=== PATIENT | female | born 1970 | race Caucasian/White ===

== ENCOUNTER 2019-04-02 07:03 | Inpatient (IN) | payer BC, OTHER ==
[~2019-04-02] VITALS: Ht 154.9 cm; Wt 58.5 kg
[~2019-04-02 07:03] MED LIST: CALC0.258 PO; CEFAZOLIN SOD 1 GM in D5W 50 ML IV ONE; CHOL500037 PO; HYDR-4039 PO; NEPH PO; NOR10 PO; SIMV20TA2 PO; VALS320T2 PO
[2019-04-02 07:59] LABS: CALCIUM 8.7 mg/dL (8.4-11.0); POTASSIUM 4.8 mmol/L (3.5-5.1)
[2019-04-02 08:02] LABS: CREATININE 15.57 mg/dL (0.55-1.30)
[2019-04-02] MEDS ORDERED: METO50TA7 PO (09:06)
[2019-04-02] MEDS ORDERED: GLYCOPYRROLATE 0.2 MG/ML VIAL IJ ONE (09:20)
[2019-04-02] MEDS ORDERED: NS IRRIG SOLN 1000 ML IR ONE (09:20)
[2019-04-02] MEDS ORDERED: ISOSULFAN BLUE 5 ML VIAL (LYMPHAZURIN) INJ ONE (09:20)
[2019-04-02] MEDS ORDERED: NEOSTIGMINE METHYLSULFATE 1 MG/ML, 10 ML VIAL IVP ONE (09:20)
[2019-04-02] MEDS ORDERED: PROPOFOL 200MG/ 20ML VIAL (DIPRIVAN) IV ONE (09:20)
[2019-04-02] MEDS ORDERED: SEVOFLURANE 15 MIN GAS INH ONE (09:20)
[2019-04-02] MEDS ORDERED: fentaNYL CITRATE 250 MCG/5 ML AMP IV ONE (09:20)
[2019-04-02] MEDS ORDERED: ONDANSETRON HCL 4 MG/2 ML VIAL IVP ONE (09:20)
[2019-04-02] MEDS ORDERED: MIDAZOLAM HCL 5 MG/5 ML VIAL IVP ONE (09:20)
[2019-04-02] MEDS ORDERED: 0.45% NACL 1,000 ML BAG IV ONE (09:20)
[2019-04-02] MEDS ORDERED: ATRACURIUM BESYLATE 100 MG/10 ML VIAL (ATRACURIUM) IV ONE (09:20)
[2019-04-02] MEDS ORDERED: ATRACURIUM BESYLATE 100 MG/10 ML VIAL (ATRACURIUM) ONE (09:34)
[2019-04-02] MEDS ORDERED: 0.45% NACL 1,000 ML IV SCH (10:35)
[2019-04-02] MEDS ORDERED: MORPHINE 4 MG/ML INJ. SYRINGE IVP PRN ×3 (10:45)
[2019-04-02] MEDS ORDERED: hydrALAZINE HCL 20 MG/ML VIAL IVP PRN (10:45)
[2019-04-02] MEDS ORDERED: METOCLOPRAMIDE HCL 10 MG/2 ML VIAL IVP PRN (10:45)
[2019-04-02] MEDS ORDERED: D5/0.45 NS 1,000 ML IV SCH (12:16)
[2019-04-02] MEDS ORDERED: ONDANSETRON HCL 4 MG/2 ML VIAL IVP PRN (12:30)
[2019-04-02] MEDS ORDERED: HYDROmorphone 1 MG INJ. 1 MG/ML AMPUL IVP PRN (12:30)
[2019-04-02] MEDS ORDERED: HYDROcodone/ACETAMIN 5-325 MG TAB (NORCO/ VICODIN) PO PRN (12:30)
[2019-04-02] MEDS ORDERED: ACETAMINOPHEN 325 MG TABLET PO PRN (12:30)
[2019-04-02] MEDS ORDERED: MORPHINE 4 MG/ML INJ. SYRINGE ONE (13:21)
[2019-04-02 13:44] VITALS: BP_SYST 140
--- NOTE | 2019-04-02 13:50 | NUR ---
ADMISSION NOTE Received patient from PACU via bed. Patient admitted with diagnosis of bilateral mastectomy. Patient is sedated, however, is arousable . Patient oriented to hospital room, call light, toileting, pain management and safety-teach back done. Patient informed that Alessia will be her nurse and that their room number is 117-b. Personal belongings checked and Belongings List documented. Call light within reach.
[2019-04-02 14:12] LABS: CALCIUM 8.1 mg/dL (8.4-11.0)
[2019-04-02 14:14] LABS: POTASSIUM 5.9 mmol/L (3.5-5.1)
[2019-04-02 14:15] LABS: CREATININE 15.45 mg/dL (0.55-1.30)
--- NOTE | 2019-04-02 14:16 | NUR ---
CONSULTATION PAGED REASON FOR CONSULTATION:POST-OP CARE WAS CONSULT CALLED?Y PERSON WHO WAS NOTIFIED:SRINIVASA CONSULTING PHYSICIAN:HOWARD LOUIS HVAC TECHNICIAN SPECIALTY:INTERNAL MEDICINE HVAC TECHNICIAN PHONE NUMBER:[phone] ORDERING PHYSICIAN:JOSE ALEJANDRO MUNROE
--- NOTE | 2019-04-02 14:20 | NUR ---
Critical Labs Called Dr. Jackson to report a K level of 5.9, and creatinine of 15.45.
--- NOTE | 2019-04-02 14:30 | NUR ---
Spoke with MD Spoke with Dr. Jackson. Made MD aware of the critical labs. Also, made MD aware that patient receives peritoneal dialysis. MD ordered a consult with Dr. Palafox.
--- NOTE | 2019-04-02 15:06 | NUR ---
Nephro consult called: for Dr. Palafox, regarding peritoneal dialysis (stat), ordered by Dr. Jackson, spoke with Ministerio.
[2019-04-02] MEDS: CEFAZOLIN 1 GM IVPB PREMIX 50 ML IV SCH ×2 (15:12→22:15)
[2019-04-02] MEDS ORDERED: SODIUM POLYSTYRENE SULFONATE 15 GM/60 ML UDBTL PO ONE (15:30)
--- NOTE | 2019-04-02 15:45 | NUR ---
Med/Spoke with Kayexalate 30mg given per MD order. Spoke with Dr. Palafox. Made MD aware that the patient receives peritoneal dialysis.
[2019-04-02] MEDS: HYDROcodone/ACETAMIN 5-325 MG TAB (NORCO/ VICODIN) PO PRN ×2 (15:47→19:57)
--- NOTE | 2019-04-02 16:25 | NUR ---
Rounds/IS teaching Patient is currently resting in bed. Call light is within reach. Encouraged the patient ti use the IS, doing up 1000 at the moment.
[2019-04-02 16:30] VITALS: BP_SYST 135
[2019-04-02] MEDS ORDERED: Auryxia PO (18:08)
--- NOTE | 2019-04-02 18:24 | NUR ---
Closing Note Patient is currently resting in bed. Family is at the bedside. Current pain level is 3/10. Chest dressing and lj wrap are dry and intact. All four SHORTY drains were drained. IV is on the left hand 18g. SCDS are in place. Call light is within reach and bed is in the lowest position. Will endorse care to the oncoming shift.
[2019-04-02 19:40] VITALS: BP_SYST 134
--- NOTE | 2019-04-02 19:40 | NUR ---
INITIAL NOTES: BEDSIDE REPORT DONE WITH AM RN AT 1915HR. PATIENT IN BED AWAKE AWAKE ORIENTED X4. AT BEDSIDE. PT. HAVING POST OP PAIN.CANDLE MOLDER AT BEDSIDE INFORMING PATIENT AND FAMILY THAT HE WILL RETURN TO START PERITONEAL DIALYSIS.VITAL SIGNS TAKEN. SALINE LOCK TO LEFT HAND PATENT.BOTH MASTECTOMY BREAST WITH ANDREINA WRAPPED DRY AND INTACT. FOUR J PS. ON BULB SUCTION WITH SEROSANGUINOS DRAINAGE. HAS SCD. BED ALARM ON. WILL MONITOR CLOSELY.
--- NOTE | 2019-04-02 19:55 | NUR ---
PAIN: PATIENT COMPLAIN OF POST OPPAIN LEVEL 05/26. NORCO 2 TABS. PO.
--- NOTE | 2019-04-02 20:35 | NUR ---
HD RN NOT HERE YET. CHIEF DISPATCHER SERVICE ALEE AWARE. CHIEF DISPATCHER SERVICE INFORMED HD RN WILL START AT 2100.
--- NOTE | 2019-04-02 20:50 | NUR ---
HD RN HERE .SET UP PERITONEAL DIALYSIS AND INITIATED AT 2100 TILL 0730. PT. AND MADE AWARE WITH INSTRUCTIONS. WILL MONITOR CLOSELY.
--- NOTE | 2019-04-02 22:05 | NUR ---
MEDS ADMIN: ALL DUE MEDS GIVEN WITHOUT DIFFICULTY. RESTING QUITELY. PD. IN PROGRESS.
[2019-04-02] MEDS: hydrALAZINE HCL 25 MG TABLET PO SCH (22:15)
--- NOTE | 2019-04-03 | NUR ---
ROUNDS: RESTING WITH EYES CLOSE. OPENS EYES SLOWLY WHEN CALLED HER NAME. NOD HEAD WHEN ASKED IF COMFORTABLE. SALINE LOCKED AFTER IVPB.
[2019-04-03 01:22] VITALS: BP_SYST 112
--- NOTE | 2019-04-03 02:05 | NUR ---
ROUNDS: SLEEPING. 4 JPS WITH SUCTION.PD IN PROGRESS.NO DISTRESS.
--- NOTE | 2019-04-03 04:20 | NUR ---
OFFERED PAIN MEDS ,SAID IM OKAY. DRESSING DRY AND INTACT.
--- NOTE | 2019-04-03 06:50 | NUR ---
CLOSING: HAS POST OP PAIN. NORCO 2 TABS PO GIVEN. USED IS THIS AM. DENIES FEEL OF URINATING. NO ACUTE DISTRESS WHOLE SHIFT. PD BAG COMPLETED. DRAINING WELL. TOLERATING ORAL FLUIDS.
[2019-04-03] MEDS: HYDROcodone/ACETAMIN 5-325 MG TAB (NORCO/ VICODIN) PO PRN (06:52)
--- NOTE | 2019-04-03 06:52 | NUR ---
Nutrition Update Kailash Scale 15 noted. Pt admitted for Malignant Neoplasm of Unspecified site Diet: 2gm Na BMI: 24.4 kg/m2 RD to follow per nutrition care standards.
[2019-04-03] MEDS: hydrALAZINE HCL 25 MG TABLET PO SCH (06:53)
[2019-04-03 07:11] LABS: BASOPHILS % (AUTO) 0.2 % (0.0-2.0); EOSINOPHILS # (AUTO) 0.2 K/uL (0.0-0.4); EOSINOPHILS % (AUTO) 2.7 % (0.0-4.0); HEMATOCRIT 30.6 % (36-48); HEMOGLOBIN 9.7 g/dL (12.0-16.0); LYMPHOCYTES # (AUTO) 0.6 K/uL (1.0-5.5); LYMPHOCYTES % (AUTO) 8.8 % (20.5-51.5); MEAN CORPUSCULAR HEMOGLOBIN 32 pg (27-31); MEAN CORPUSCULAR HGB CONC 32 % (32-36); MEAN CORPUSCULAR VOLUME 99 fL (79.0-98.0); MONOCYTES # (AUTO) 0.7 K/uL (0.0-1.0); NEUTROPHILS # (AUTO) 5.7 K/uL (1.8-7.7); NEUTROPHILS % (AUTO) 78.3 % (40.0-70.0); PLATELET COUNT (AUTO) 213 K/uL (130-430); RED BLOOD CELL COUNT(AUTO) 3.08 MIL/uL (4.2-6.2); RED CELL DISTRIBUTION WIDTH 16.9 % (9.0-15.0); WHITE BLOOD COUNT (AUTO) 7.3 K/uL (4.8-10.8)
[2019-04-03 07:36] LABS: ALBUMIN 2.4 g/dL (3.4-4.8); CALCIUM 8.4 mg/dL (8.4-11.0); POTASSIUM 4.6 mmol/L (3.5-5.1); TOTAL BILIRUBIN 0.3 mg/dL (0.0-1.0)
[2019-04-03 07:45] LABS: CREATININE 15.37 mg/dL (0.55-1.30)
--- NOTE | 2019-04-03 07:48 | NUR ---
opening Note Report received from [facility] shift nurse. Patient is currently resting in bed. Chest dressing is dry and intact. Patient just finished her peritoneal dialysis with 1191 ml out. IV is on the left hand 18g, SL. Four SHORTY drains are in place draining sanguinous drainage. Call light is within reach and bed is in the lowest position. Will continue to monitor.
[2019-04-03 08:03] VITALS: BP_SYST 156
[2019-04-03] MEDS ORDERED: CALCITRIOL 0.25 MCG CAPSULE PO SCH (09:00)
[2019-04-03] MEDS ORDERED: amLODIPine BESYLATE 10 MG TABLET PO SCH (09:00)
[2019-04-03] MEDS ORDERED: METOPROLOL SUCCINATE 50 MG TAB.SR.24H (TOPROL XL) PO SCH (09:00)
[2019-04-03] MEDS ORDERED: VALSARTAN 160 MG TABLET (DIOVAN) PO SCH (09:00)
[2019-04-03] MEDS ORDERED: NEPHROVITE, (FOLIC ACID/VITAMIN B COMP W-C 1 TAB) PO SCH (09:00)
[2019-04-03] MEDS ORDERED: SIMVASTATIN 20 MG TABLET PO SCH (09:00)
[2019-04-03] MEDS ORDERED: NON-FORMULARY MEDICATION (Cholecalciferol* (Vitamin D3*) 50,000 UNIT) PO SCH (09:00)
--- NOTE | 2019-04-03 10:20 | NUR ---
Rounds Patient is currently resting in bed. Encouraged patient to use the IS, was able to do up to 1500.
[2019-04-03 11:45] VITALS: BP_SYST 156
[2019-04-03 12:58] VITALS: BP_SYST 129
--- NOTE | 2019-04-03 13:00 | NUR ---
Pain med Medicated the patient with Dilaudid 1mg for 7/10 pain. Will reassess.
--- NOTE | 2019-04-03 14:48 | NUR ---
Transition of Care Patient given medication reconciliation form and D/C instructions. Exit Care provided. Patient verbalized understanding. MD discussed with patient the results and treatment provided. Ambulatory with steady gait for discharge to home. Patient in stable condition, ID band removed. IV catheter removed, intact and dressing applied, no active bleeding. Patient educated on pain management. All belongings sent with patient.
== END 2019-04-03 14:45 | disposition home or self-care (01) | DRG 579 ==
LOC: SDS 07:03 → SMU 07:03 → EDSTATUS 09:30 → SMU 15:57 → SDS 16:28
PROVIDERS: ADMIT Colon & Rectal Surgery; ATTEND Colon & Rectal Surgery
PROC: 07B50ZX Excision of Right Axillary Lymphatic, Open Approach, Diagnostic (ICD-10-PCS; 2019-04-02)
PROC: 5A1D70Z Performance of Urinary Filtration, Intermittent, Less than 6 Hours Per Day (ICD-10-PCS; 2019-04-02)
PROC: 0HTV0ZZ Resection of Bilateral Breast, Open Approach (ICD-10-PCS; principal; 2019-04-02 09:00)
DX: C50.911 Malignant neoplasm of unspecified site of right female breast (principal); N18.6 End stage renal disease; I12.0 Hypertensive chronic kidney disease with stage 5 chronic kidney disease or end stage renal disease; Z88.9 Allergy status to unspecified drugs, medicaments and biological substances; E78.5 Hyperlipidemia, unspecified; Z99.2 Dependence on renal dialysis; H52.13 Myopia, bilateral; H52.203 Unspecified astigmatism, bilateral; H52.4 Presbyopia; M54.30 Sciatica, unspecified side
CPT/HCPCS: 36415; 78195; 80048; 80053; 84703; 85025; 86886; 86900; 86901; 86920; 87081; 88305; 88307; A9541; J0690; J1170; J2250; J2270; J2405; J2704; J2710; J3010; J3490; J7030; J7060; Q9968

== ENCOUNTER 2019-07-10 16:13 | Inpatient (IN) | payer BC, OTHER ==
[~2019-07-10] VITALS: Ht 154.9 cm; Wt 46.7 kg
[~2019-07-10 16:13] MED LIST changes: +Auryxia PO; -CEFAZOLIN SOD 1 GM in D5W 50 ML IV ONE; +METO50TA7 PO
--- NOTE | 2019-07-10 19:45 | NUR ---
DIRECT ADMISSION NOTE: Patient brought in by ambulance via gurney from [facility]. Patient oriented to hospital routine, call light, toileting and safety-patient verbalized understanding. Will call MD for admit orders.
[2019-07-10 19:55] VITALS: BP_SYST 138
--- NOTE | 2019-07-10 19:59 | NUR ---
Page to Dr. Palafox: was paged by JEANINE Cotton/ for admit orders. Awaiting callback. Addendum: 07/10/19 at 2018 by Ryan Raygoza RN is on-call for Dr. Jackson.
--- NOTE | 2019-07-10 20:31 | NUR ---
Dr. Palafox: Dr. Palafox, on-call for Dr. Jackson, called back at this time after 2nd page. MD ordered to continue medications from [place], CBC/CMP in the morning, and Tylenol for patient's complaint of headache. MD was made aware that patient receives peritoneal dialysis daily. MD stated that he will notify dialysis nurse SANDOVAL Avila. Orders verified by read-back, RN to input.
[2019-07-10] MEDS ORDERED: ACETAMINOPHEN 650 MG/20.3 ML UDC PO PRN (20:45)
--- NOTE | 2019-07-10 21:26 | NUR ---
Call from dialysis nurse: Received call from dialysis nurse SANDOVAL Avila and was notified that patient's peritoneal dialysis will be resumed tomorrow unless patient's PD machine can be brought from home. Patient's Nixon present in the room and spoke to SANDOVAL Avila over phone. Per Nixon, SANDOVAL Avila wanted him to bring patient's PD machine to the hospital. Nixon stated that the PD machine is property of [facility], and he is not sure if he is legally allowed to bring the machine to the hospital. Additionally, patient wanted her PD machine to stay at her home. and patient aware that PD will be resumed tomorrow.
[2019-07-10] MEDS ORDERED: PIPERACILLIN/TAZOBACTAM 3.375 GM/VIAL (ZOSYN) IV ONE (22:13)
[2019-07-10] MEDS: NACL 0.9% 1,000 ML IV SCH (22:52)
[2019-07-10] MEDS: MIDODRINE HCL 5 MG TABLET (PROAMATINE) PO SCH (22:52)
[2019-07-10] MEDS: NYSTATIN 500,000 UNITS/5 ML UDC PO SCH (22:57)
[2019-07-10] MEDS ORDERED: ACETAMINOPHEN 325 MG TABLET PO PRN (23:00)
[2019-07-10] MEDS: PIPERACILLIN/TAZO 3.375/DEX-IS 50 ML IV SCH (23:21)
--- NOTE | 2019-07-11 00:13 | NUR ---
Rounds: Patient is sleeping, no acute distress. Tolerating room air. IV fluids infusing as ordered. Call light is with patient. Will continue to monitor.
[2019-07-11 00:44] VITALS: BP_SYST 140
--- NOTE | 2019-07-11 03:28 | NUR ---
Rounds: Patient is sleeping, no acute distress. Tolerating room air, breathing is even and unlabored. IV fluids infusing as ordered. Call light is with patient. Will continue to monitor.
[2019-07-11] MEDS: NYSTATIN 500,000 UNITS/5 ML UDC PO SCH ×4 (05:53→23:41)
--- NOTE | 2019-07-11 06:13 | NUR ---
Closing note: Patient is awake, no acute distress noted. IV fluids infusing as ordered. Patient able to ambulate to bathroom with FWW and nurse on standby assist. Patient denies any pain, shortness of breath, or dizziness. All needs met. Safety and fall precautions observed. Will endorse care to dayshift RN.
[2019-07-11 06:32] LABS: BASOPHILS # (AUTO) 0.2 K/uL (0.0-0.2); EOSINOPHILS # (AUTO) 0.4 K/uL (0.0-0.4); EOSINOPHILS % (AUTO) 3.4 % (0.0-4.0); HEMATOCRIT 28.8 % (36-48); HEMOGLOBIN 9.9 g/dL (12.0-16.0); LYMPHOCYTES % (AUTO) 8.6 % (20.5-51.5); MEAN CORPUSCULAR HEMOGLOBIN 31 pg (27-31); MEAN CORPUSCULAR HGB CONC 34 % (32-36); MEAN CORPUSCULAR VOLUME 90 fL (79.0-98.0); MONOCYTES # (AUTO) 0.8 K/uL (0.0-1.0); MONOCYTES % (AUTO) 7.2 % (1.7-9.3); NEUTROPHILS # (AUTO) 9.2 K/uL (1.8-7.7); NEUTROPHILS % (AUTO) 78.8 % (40.0-70.0); PLATELET COUNT (AUTO) 347 K/uL (130-430); RED BLOOD CELL COUNT(AUTO) 3.18 MIL/uL (4.2-6.2); RED CELL DISTRIBUTION WIDTH 14.3 % (9.0-15.0); WHITE BLOOD COUNT (AUTO) 11.6 K/uL (4.8-10.8)
[2019-07-11 06:53] LABS: ALBUMIN 1.7 g/dL (3.4-4.8); CALCIUM 7.3 mg/dL (8.4-11.0); POTASSIUM 3.3 mmol/L (3.5-5.1); TOTAL BILIRUBIN 0.4 mg/dL (0.0-1.0)
[2019-07-11 06:57] LABS: CREATININE 8.28 mg/dL (0.55-1.30)
[2019-07-11 07:45] VITALS: BP_SYST 131
--- NOTE | 2019-07-11 08:00 | NUR ---
am noted received pt in bed. a/ox4. .eating breakfast. denies any pain or sob at this time. vitals stable. res even and unlabored. encourged deep breathing. .safety and fall precautions maintained. needs attended. call light within reach. not in acute distress. will continue to monitor
[2019-07-11] MEDS ORDERED: ESCITALOPRAM OXALATE 10 MG TABLET PO SCH (09:00)
[2019-07-11] MEDS: MULTIVITAMINS TAB 1 TABLET PO SCH (09:12)
[2019-07-11] MEDS: PIPERACILLIN/TAZO 3.375/DEX-IS 50 ML IV SCH ×2 (09:12→20:53)
[2019-07-11] MEDS: MIDODRINE HCL 5 MG TABLET (PROAMATINE) PO SCH ×4 (09:12→21:00)
[2019-07-11] MEDS: CITALOPRAM HYDROBROMIDE 20 MG TABLET PO SCH (09:12)
--- NOTE | 2019-07-11 11:00 | NUR ---
iv site rt hand iv site infiltrated.. new iv line inserted #22 by charge nurse kuldeep. ivf infusing well. no s/sof infiltration noted.denies any pain or orther discomfort. will continue to monitor
[2019-07-11 11:25] VITALS: BP_SYST 133
[2019-07-11] MEDS: NACL 0.9% 1,000 ML IV SCH ×2 (12:17→20:53)
[2019-07-11] MEDS: ONDANSETRON HCL 4 MG/2 ML VIAL IVP PRN (12:23)
--- NOTE | 2019-07-11 15:25 | NUR ---
Dietitian Recommendation * Recommend renal diet w/ Nepro BID, Prosource daily, Ernst BID (supplements provide 1090 kcal/day, 73 gm protein/day) OSCAR MEDINA Please refer to Nutrition Assessment for details. Addendum: 07/11/19 at [address] Amended: Links added.
[2019-07-11 15:45] VITALS: BP_SYST 141
--- NOTE | 2019-07-11 16:00 | NUR ---
rounds pt stable not in acute distress vitals stable. vitals stable.ivf infusing well
--- NOTE | 2019-07-11 18:42 | NUR ---
closing notes pt resting comfortably .not ken cute distress. dialysis nurse cortez at bed side. for peritonal dialysis. pt signed consent for peritonal dialysis.ivf infuisng well. will endorse to night nurse
--- NOTE | 2019-07-11 19:15 | NUR ---
OPENING NOTES RECEIVED PATIENT IN BED AAO X4. BREATHING UNLABORED ON ROOM AIR. DENIES PAIN AT THIS TIME. PERITONEAL DIALYSIS ONGOING. IVF INFUSING WITH IV LINE INTACT. BED IN LOWEST LOCKED POSITION WITH ALARM ON. CALL LIGHT WITH IN REACH.
[2019-07-11 20:46] VITALS: BP_SYST 135
--- NOTE | 2019-07-11 20:53 | NUR ---
ATB PATIENT DUE ANTIBIOTIC INFUSED. IV LINE GOOD AND PATENT. VITAL SIGNS STABLE.
--- NOTE | 2019-07-12 00:30 | NUR ---
ROUNDS PATIENT RESTING IN BED. NO DISTRESS NOTED. VITAL SIGNS STABLE. CALL LIGHT WITH IN REACH.
[2019-07-12 00:40] VITALS: BP_SYST 124
[2019-07-12] MEDS: guaiFENesin/DEXTROMETHORPHAN 10 ML UDC PO PRN ×4 (02:13→21:21)
[2019-07-12] MEDS: ONDANSETRON HCL 4 MG/2 ML VIAL IVP PRN (02:13)
--- NOTE | 2019-07-12 02:13 | NUR ---
VOMITING/COUGH PATIENT MEDICATED WITH ZOFRAN FOR EPISODE OF VOMITING AND ROBITUSSIN FOR COUGH.
[2019-07-12] MEDS: NYSTATIN 500,000 UNITS/5 ML UDC PO SCH ×4 (06:16→23:55)
--- NOTE | 2019-07-12 06:20 | NUR ---
WOUND CARE WOUND CARE DONE ON LEFT BUTTOCK. NEW DRESSING APPLIED.
[2019-07-12] MEDS: NACL 0.9% 1,000 ML IV SCH (06:25)
--- NOTE | 2019-07-12 06:57 | NUR ---
CLOSING NOTES PATIENT AWAKE WATCHING TV. BREATHING UNLABORED ON ROOM AIR. IVF INFUSING WITH IV LINE INTACT. PATIENT NEEDS ATTENDED. BED IN LOWEST LOCKED POSITION. CALL LIGHT WITH IN REACH.
[2019-07-12] MEDS: PIPERACILLIN/TAZO 3.375/DEX-IS 50 ML IV SCH (08:15)
[2019-07-12] MEDS: MIDODRINE HCL 5 MG TABLET (PROAMATINE) PO SCH ×4 (08:15→21:00)
[2019-07-12] MEDS: CITALOPRAM HYDROBROMIDE 20 MG TABLET PO SCH (08:15)
[2019-07-12] MEDS: NEPHROVITE, (FOLIC ACID/VITAMIN B COMP W-C 1 TAB) PO SCH (08:15)
[2019-07-12] MEDS: MULTIVITAMINS TAB 1 TABLET PO SCH (08:15)
[2019-07-12] MEDS: CALCITRIOL 0.25 MCG CAPSULE PO SCH (08:17)
[2019-07-12 08:21] VITALS: BP_SYST 139
--- NOTE | 2019-07-12 09:30 | NUR ---
Cardiac consult called: for Dr. Fink, regarding hypotension, ordered by Dr. Jackson, spoke with Bridgett.
--- NOTE | 2019-07-12 09:36 | NUR ---
DR CHAN ORDERED MICRO CULTURE REPORT FROM [facility]. SPOKE TO UMM.
--- NOTE | 2019-07-12 11:15 | NUR ---
PATIENT RESTING: Patient resting quietly. No acute distress noted. Vital signs within normal range.
--- NOTE | 2019-07-12 11:41 | NUR ---
SKIN CARE COMFORT Patient had shower tolerates well no dizziness, left lower abdominal peritoneal dialysis catheter dressing changed.
[2019-07-12 13:01] VITALS: BP_SYST 136
[2019-07-12 14:00] VITALS: BP_SYST 133
--- NOTE | 2019-07-12 14:00 | NUR ---
Wound care Left buttocks wound is dried kept dry/clean skin cream barrier applied kept open to air.
[2019-07-12 14:46] VITALS: BP_SYST 133
--- NOTE | 2019-07-12 14:49 | NUR ---
Dr. Fink informed regarding blood pressure on 130 up , midodrine not given.
--- NOTE | 2019-07-12 16:35 | NUR ---
P.T. NOTES P.T. TOM COMPLETED; NURSING TO GRISELU AD MARGARITA. Addendum: 07/12/19 at 1636 by Lula Telles PT Amended: Links added.
--- NOTE | 2019-07-12 18:00 | NUR ---
Renal Patient started peritoneal dialysis by dialysis nurse PAUL , able to ambulate to bathroom with steady gait , vitals sign stable, needs attended.
--- NOTE | 2019-07-12 19:15 | NUR ---
CHANGE OF SHIFT; pt. awake, alert, no complaints, noted nonproductive cough. On continuous peritoneal dialysis. call light at bedside. will reassess later.
[2019-07-12 20:00] VITALS: BP_SYST 146
--- NOTE | 2019-07-12 20:15 | NUR ---
NOTES: pt. resting, IV lock on left forearm. VS checked. moves all extremities. pt. anuric. PD site on left lower quadrant. instructed to call for help and verbalized understanding.
--- NOTE | 2019-07-12 21:21 | NUR ---
NOTES: pt. still awake, with occ. bouts of non productive cough, Robitussin po given. pt. still on continuous PD.
--- NOTE | 2019-07-12 22:47 | NUR ---
NOTES: pt. pretty calm, resting.
--- NOTE | 2019-07-13 00:01 | NUR ---
NOTES: pt. awakened for due medication, noted cough was relieved from cough syrup.
[2019-07-13 00:11] VITALS: BP_SYST 140
--- NOTE | 2019-07-13 02:00 | NUR ---
NOTES: condition unchanged, remain sleeping.
--- NOTE | 2019-07-13 04:17 | NUR ---
NOTES: no complaints, checked pt. still asleep.
[2019-07-13] MEDS: NYSTATIN 500,000 UNITS/5 ML UDC PO SCH ×3 (05:40→17:29)
[2019-07-13] MEDS: guaiFENesin/DEXTROMETHORPHAN 10 ML UDC PO PRN (05:42)
--- NOTE | 2019-07-13 05:43 | NUR ---
NOTES; awakened and due po meds given including cough syrup. pt. needs attended.
--- NOTE | 2019-07-13 06:45 | NUR ---
CLOSING NOTES; pt. condition unchanged, no complaints except for the cough. needs attended. PD catheter intact. call light within reach.
[2019-07-13 07:52] VITALS: BP_SYST 136
--- NOTE | 2019-07-13 07:53 | NUR ---
Initial note: Patient is alert, oriented x4, denies any pain, but having dry cough, walking around the bed independence. She is on Peritoneal dialysis cycle, waiting for HD nurse to disconnect. Will continue monitor.
[2019-07-13] MEDS: CALCITRIOL 0.25 MCG CAPSULE PO SCH (08:52)
[2019-07-13] MEDS: CITALOPRAM HYDROBROMIDE 20 MG TABLET PO SCH (08:53)
[2019-07-13] MEDS: MULTIVITAMINS TAB 1 TABLET PO SCH (08:53)
[2019-07-13] MEDS: NEPHROVITE, (FOLIC ACID/VITAMIN B COMP W-C 1 TAB) PO SCH (08:53)
[2019-07-13] MEDS: MIDODRINE HCL 5 MG TABLET (PROAMATINE) PO SCH ×2 (08:53→16:12)
--- NOTE | 2019-07-13 09:45 | NUR ---
PD disconnected: Avila < HD nurse> came in and disconnect Peritoneal Dialysis cycle with 1060 out put.
[2019-07-13 12:00] VITALS: BP_SYST 131
--- NOTE | 2019-07-13 13:36 | NUR ---
shower: Assist patient to shower room. Encourage her to pull the call light if needed help.
--- NOTE | 2019-07-13 14:08 | NUR ---
ATTENDING MD DR BARAHONA WAS CALLED, RE: DISCHARGE ORDER TO HOME. SPOKE TO KENIA.
--- NOTE | 2019-07-13 14:15 | NUR ---
DC ordered: Got a call from HCP spring encaser states that patient will be DC home today. Call Dr. Jackson and get an order to DC home , continue all home medication and follow up with Dialysis center . Patient made aware, and states her will be in after finishing his job around 5 PM.
[2019-07-13 15:57] VITALS: BP_SYST 136
[2019-07-13 16:14] VITALS: BP_SYST 136
--- NOTE | 2019-07-13 17:53 | NUR ---
prescription: Patient's is here ready to metal pickling equipment operator the patient, but patient wants to get prescription for Nystatin for sore in her mouth. We text message and call Dr. Jackson for that but he has not return to call. Call MD administrative assistant front desk after hour.
--- NOTE | 2019-07-13 18:21 | NUR ---
Prescription: Dr. Jackson calls back and states to have patient's Pharmacy call him. Call the [facility] pharmacy that patient goes, but they don't carry Nystatin oral suspension. Inform the patient tomorrow go check any pharmacy that carry the medication and have them call Dr. Jackson.
--- NOTE | 2019-07-13 18:27 | NUR ---
D/C Patient Patient given medication reconciliation form and D/C instructions. Patient verbalized understanding. MD discussed with patient the results and treatment provided. Ambulatory with steady gait for discharge to home. Patient in stable condition, ID band removed. IV catheter removed, intact and dressing applied, no active bleeding. Patient educated on pain management. All belongings sent with patient.
== END 2019-07-13 18:22 | disposition home or self-care (01) | DRG 871 ==
LOC: SMU 20:00 → STU 21:15 → SMU 07-12 11:24
PROVIDERS: ADMIT Internal Medicine Hospice and Palliative Medicine; ATTEND Internal Medicine Hospice and Palliative Medicine
DX: A41.9 Sepsis, unspecified organism (principal); N18.6 End stage renal disease; I12.0 Hypertensive chronic kidney disease with stage 5 chronic kidney disease or end stage renal disease; Z99.2 Dependence on renal dialysis; E78.5 Hyperlipidemia, unspecified; K12.1 Other forms of stomatitis; Z85.3 Personal history of malignant neoplasm of breast; Z90.13 Acquired absence of bilateral breasts and nipples; Z92.21 Personal history of antineoplastic chemotherapy
CPT/HCPCS: 36415; 80053; 85025; 87040-TC; 87081; 93306; G0378; J2405; J2543; J7030; J7060

== ENCOUNTER 2022-04-22 14:37 | Emergency (ER) | payer BC ==
[~2022-04-22] VITALS: Ht 154.9 cm; Wt 38.1 kg
[~2022-04-22 14:37] MED LIST changes: +CAT2PAT TD; -CHOL500037 PO; +FOLI-43 PO; +FOLI400T4 PO; -METO50TA7 PO; +NIFE90TA24 PO; -NOR10 PO; +RALO60TA PO; +TAMO20TA4 PO; -VALS320T2 PO; +VITAMIN D PO
[2022-04-22 14:44] VITALS: BP_SYST 116
--- NOTE | 2022-04-22 15:00 | NUR ---
Patient to ER bed 4 to gown for evaluation. Side rails up.
--- NOTE | 2022-04-22 15:09 | NUR ---
# 20 gauge angiocath placed to left AC. Use of asceptic technique. Opsite placed over site. Blood return noted. Blood for lab drawn from site. Flushed with 10 cc of normal saline. No evidence of infiltration noted. Patient tolerated well.
--- NOTE | 2022-04-22 15:15 | NUR ---
ER at bedside examining patient.
[2022-04-22 15:45] LABS: BASOPHILS % (AUTO) 0.2 % (0.0-2.0); EOSINOPHILS % (AUTO) 0.1 % (0.0-4.0); LYMPHOCYTES # (AUTO) 0.7 K/uL (1.0-5.5); LYMPHOCYTES % (AUTO) 8.3 % (20.5-51.5); MEAN CORPUSCULAR HEMOGLOBIN 33 pg (27-31); MEAN CORPUSCULAR HGB CONC 33 % (32-36); MEAN CORPUSCULAR VOLUME 101 fL (79.0-98.0); MONOCYTES # (AUTO) 0.7 K/uL (0.0-1.0); MONOCYTES % (AUTO) 8.1 % (1.7-9.3); NEUTROPHILS # (AUTO) 7.4 K/uL (1.8-7.7); NEUTROPHILS % (AUTO) 83.3 % (40.0-70.0); PLATELET COUNT (AUTO) 503 K/uL (130-430); RED BLOOD CELL COUNT(AUTO) 2.12 MIL/uL (4.2-6.2); RED CELL DISTRIBUTION WIDTH 16.9 % (9.0-15.0); WHITE BLOOD COUNT (AUTO) 8.9 K/uL (4.8-10.8)
[2022-04-22 15:49] LABS: HEMATOCRIT 21.4 % (36-48)
--- NOTE | 2022-04-22 16:03 | NUR ---
Consent obtained for blood transfusion. Pt has no c/o. Paper work sent to lab.
--- NOTE | 2022-04-22 17:04 | NUR ---
Called pharmacy to see if blood is ready and they stated it is not ready yet.
[2022-04-22 17:37] LABS: CALCIUM 9.1 mg/dL (8.4-11.0); POTASSIUM 4.2 mmol/L (3.5-5.1)
[2022-04-22 17:40] LABS: CREATININE 14.45 mg/dL (0.55-1.30)
--- NOTE | 2022-04-22 18:50 | NUR ---
Initiated 1 unit of Blood Transfusion PRBC starting at 75ml/hr. VSS. pt has no c/o.
--- NOTE | 2022-04-22 19:02 | NUR ---
Blood transfusion rate changed to 150ml/hr. VSS. Pt has no c/o. at bedside.
--- NOTE | 2022-04-22 19:10 | NUR ---
Report given to Mila NICK to assume care.
--- NOTE | 2022-04-22 19:15 | NUR ---
REPORT FROM SANDOVAL LEMOS. X1 PRBC INFUSING TO LEFT A/C 20G IV CATH. NO EDEMA OR REDNESS AT SITE. CONTINUED MONITORING
--- NOTE | 2022-04-22 20:30 | NUR ---
IV PRBC INFUSION OCCLUDDED AND STOPPED. EDEMA NOTED AT SITE TO LEFT A/C. IV CATH REMOVED WITH CATH INTACT AND IV CATH RESTARTED TO LEFT HAND/ WRIST VIA 20G CATH. PRBS RESTARTED AT 150CC/ WITH NO EDEMA NOTED OR REDNESS.
--- NOTE | 2022-04-22 22:15 | NUR ---
JESSICA RN PT D/C TO HOME WITH . TO LOBBY VIA W/C WITH ALL PAPERWORK IN HAND. PT STABLE FOR D/C
[2022-04-22 22:29] VITALS: BP_SYST 137
== END 2022-04-22 22:29 | disposition home or self-care (01) ==
LOC: SED 14:37
DX: D64.9 Anemia, unspecified (principal); I11.0 Hypertensive heart disease with heart failure; I50.9 Heart failure, unspecified; Z99.2 Dependence on renal dialysis; Z88.6 Allergy status to analgesic agent; Z79.899 Other long term (current) drug therapy
CPT/HCPCS: 36415; 80048; 85025; 86886; 86900; 86901; 86920; 99283

== ENCOUNTER 2022-06-03 05:20 | Day surgery (SDC) | payer BC ==
[~2022-06-03] VITALS: Ht 154.9 cm; Wt 40.4 kg
[~2022-06-03 05:20] MED LIST changes: +SIMV-343 PO; -SIMV20TA2 PO
[2022-06-03] MEDS ORDERED: MEPERIDINE 100 MG INJ. 100 MG/ML VIAL ONE (06:08)
[2022-06-03] MEDS ORDERED: SIMETHICONE 40 MG/0.6 ML ML ONE (06:09)
[2022-06-03] MEDS ORDERED: fentaNYL CITRATE/PF 100 MCG/2 ML AMP ONE (06:54)
[2022-06-03] MEDS ORDERED: AMPICILLIN SODIUM 1 GM in NS 50 ML IV ONE (07:30)
[2022-06-03] MEDS: MIDAZOLAM HCL 5 MG/5 ML VIAL ONE ×2 (08:49→08:55)
[2022-06-03 13:09] VITALS: BP_SYST 137
== END 2022-06-03 10:07 | disposition home or self-care (01) ==
LOC: SDS 05:20 → SMU 05:20 → SDS 10:07
PROVIDERS: ATTEND Internal Medicine Gastroenterology
DX: K21.9 Gastro-esophageal reflux disease without esophagitis (principal); D64.9 Anemia, unspecified; K29.50 Unspecified chronic gastritis without bleeding; Z20.822 Contact with and (suspected) exposure to COVID-19; I12.9 Hypertensive chronic kidney disease with stage 1 through stage 4 chronic kidney disease, or unspecified chronic kidney disease; N18.9 Chronic kidney disease, unspecified; E78.00 Pure hypercholesterolemia, unspecified; Z85.3 Personal history of malignant neoplasm of breast; Z80.0 Family history of malignant neoplasm of digestive organs; Z79.899 Other long term (current) drug therapy
CPT/HCPCS: 36415 ×2; 43239; 87426; 88305; 88312; 88313; 99152; U0003; G0378; J0290; J2250; J3010; J2175

== ENCOUNTER 2022-10-16 00:24 | Inpatient (IN) | payer BC ==
[~2022-10-16] VITALS: Ht 154.9 cm; Wt 41.5 kg
[2022-10-16 00:35] VITALS: BP_SYST 177
--- NOTE | 2022-10-16 01:11 | NUR ---
ER at bedside examining patient.
--- NOTE | 2022-10-16 01:11 | NUR ---
Patient to ER bed redman to gown for evaluation. Side rails up. Report given to Angela NCIK(reg).
--- NOTE | 2022-10-16 01:20 | NUR ---
PATIENT BIB FAMILY FROM HOME WITH C/O AMS THAT STARTED THIS AFTERNOON. PATIENT IS ALERT AND ORIENTED X 2, FOLLOWS COMMAND, NO S/S OF ANY RESPIRAATORY DISTRESS NOTED AND NON TENDER TO PALPATION WITH DIALYSIS CATH INTACT TO LOWER ABD. MD AT BEDSIDE FOR EXAM, PATIENT AND FAMILY MEMBER INFORMED OF PLAN OF CARE AT THIS TIME. SIDE RAILS WILL CONTINUE TO MONITOR.
--- NOTE | 2022-10-16 01:49 | NUR ---
BEDSIDE EKG IN PROGRESS, #20G ESTABLISHED IN RIGHT AC, BLOOD COLLECTED AND SENT TO LAB. SIDE RAILS UP, WILL CONTINUE TO MONITOR.
--- NOTE | 2022-10-16 01:51 | NUR ---
SLIGHT BLE EDEMA NOTED AT THIS TIME.
[2022-10-16 02:19] LABS: BASOPHILS % (AUTO) 0.5 % (0.0-2.0); EOSINOPHILS % (AUTO) 0.2 % (0.0-4.0); HEMATOCRIT 31.9 % (36-48); HEMOGLOBIN 10.1 g/dL (12.0-16.0); LYMPHOCYTES # (AUTO) 0.8 K/uL (1.0-5.5); LYMPHOCYTES % (AUTO) 9.1 % (20.5-51.5); MEAN CORPUSCULAR HEMOGLOBIN 30 pg (27-31); MEAN CORPUSCULAR HGB CONC 32 % (32-36); MEAN CORPUSCULAR VOLUME 94 fL (79.0-98.0); MONOCYTES # (AUTO) 0.9 K/uL (0.0-1.0); MONOCYTES % (AUTO) 9.9 % (1.7-9.3); NEUTROPHILS # (AUTO) 7.1 K/uL (1.8-7.7); NEUTROPHILS % (AUTO) 80.3 % (40.0-70.0); PLATELET COUNT (AUTO) 270 K/uL (130-430); RED BLOOD CELL COUNT(AUTO) 3.38 MIL/uL (4.2-6.2); RED CELL DISTRIBUTION WIDTH 16.2 % (9.0-15.0); WHITE BLOOD COUNT (AUTO) 8.8 K/uL (4.8-10.8)
[2022-10-16 02:31] LABS: ANION GAP 14 (5-15); CALCIUM 9.4 mg/dL (8.4-11.0); CHLORIDE 95 mmol/L (98-107); GLUCOSE 92 mg/dL (70-99); UREA NITROGEN, BLOOD 92 mg/dL (8-21)
[2022-10-16 02:46] LABS: ALANINE AMINOTRANSFERASE 15 U/L (12-78); ALBUMIN 2.7 g/dL (3.4-4.8); ASPARTATE AMINOTRANSFERASE 17 U/L (10-37); PHOSPHORUS 8.6 mg/dL (2.7-4.5); THYROID STIMULATING HORMONE 3.13 uIu/mL (0.36-3.74); TOTAL BILIRUBIN 0.4 mg/dL (0.0-1.0)
[2022-10-16 02:48] LABS: CREATININE 14.62 mg/dL (0.55-1.30); GFR AFRICAN AMERICAN 3 mL/min (>90)
[2022-10-16] MEDS ORDERED: AZITHROMYCIN 500 MG in NS 250 ML IV ONE (03:00)
[2022-10-16] MEDS ORDERED: cefTRIAXone 1 GM in D5W 50 ML IV ONE (03:00)
[2022-10-16] MEDS ORDERED: cefTRIAXone 1 GM VIAL ONE (03:03)
[2022-10-16] MEDS ORDERED: AZITHROMYCIN 500 MG/VIAL (ZITHROMAX) IV ONE (03:04)
--- NOTE | 2022-10-16 03:19 | NUR ---
PATIENT AND FAMILY AWARE WILL BE ADMITTED TO THE HOSPITAL, AWAITING ROOM ASSIGNMENT.
--- NOTE | 2022-10-16 04:52 | NUR ---
CONSULTATION PAGED/CALLED Reason for Consultation: pna Person Who was Notified:exchange Consulting Physician: becky schneider Photogrammetric Technician Specialty: Ordering Physician: anthony gr
--- NOTE | 2022-10-16 04:53 | NUR ---
CONSULTATION PAGED/CALLED Reason for Consultation: renal failure Person Who was Notified:daphnie Consulting Physician: lili Cargo Service Supervisor Specialty: Ordering Physician: anthony gr
[2022-10-16] MEDS ORDERED: HYDROcodone/ACETAMIN 10-325 MG TAB PO PRN (05:00)
[2022-10-16] MEDS ORDERED: NON-FORMULARY MEDICATION ([Vitamin D] 50,000 UNITS) PO SCH (05:00)
[2022-10-16] MEDS ORDERED: HYDROcodone/ACETAMIN 5-325 MG TAB (NORCO/ VICODIN) PO PRN (05:00)
[2022-10-16] MEDS ORDERED: NALOXONE HCL 0.4 MG/ML AMP (NARCAN) IVP PRN ×2 (05:00)
[2022-10-16] MEDS ORDERED: ONDANSETRON HCL 4 MG/2 ML VIAL IVP PRN (05:00)
[2022-10-16] MEDS ORDERED: ACETAMINOPHEN 325 MG TABLET PO PRN (05:00)
--- NOTE | 2022-10-16 06:08 | NUR ---
RESTING, FAMILY AT BEDSIDE, NO CHANGE IN PRIMARY ASSESSMENT.
[2022-10-16] MEDS: NORMAL SALINE 5 ML DISP.SYRIN IVF SCH ×6 (06:09→22:40)
--- NOTE | 2022-10-16 07:28 | NUR ---
REPORT GIVEN TO THOMAS ORTIZ, PATIENT REMAINS STABLE.
--- NOTE | 2022-10-16 07:30 | NUR ---
Dare of care received at this time, pt Alert to name, VSS, respirations even and unlabored
--- NOTE | 2022-10-16 08:43 | NUR ---
Gave Reg. Tray breakfast to pt. is at bedside helping to feed her.
[2022-10-16] MEDS ORDERED: FOLIC ACID PO SCH (09:00)
[2022-10-16] MEDS ORDERED: VITAMIN B COMP W C PO SCH (09:00)
[2022-10-16] MEDS ORDERED: RALOXIFENE HCL 60 MG TABLET (EVISTA) PO SCH (09:00)
[2022-10-16] MEDS ORDERED: cloNIDine HCL 0.2 MG/24 HR PATCH.TDWK TD SCH (09:00)
[2022-10-16] MEDS ORDERED: [UNRECOGNIZED DRUG - OTHER] PO SCH (09:00)
[2022-10-16] MEDS ORDERED: TAMOXIFEN CITRATE 10 MG TABLET PO SCH ×2 (09:00→09:33)
--- NOTE | 2022-10-16 10:45 | NUR ---
Spoke with Dr Krishnan Diabetic Educator via phone, per Dr Krishnan she will contact dialysis nurse to start peritoneal dialysis as soon as possible , pt's notified
[2022-10-16] MEDS: hydrALAZINE HCL 25 MG TABLET PO SCH ×2 (11:01→22:39)
[2022-10-16] MEDS: NEPHROVITE, (FOLIC ACID/VITAMIN B COMP W-C 1 TAB) PO SCH (11:02)
[2022-10-16] MEDS: FOLIC ACID 1 MG TABLET PO SCH (11:02)
[2022-10-16] MEDS: calcitrioL 0.25 MCG CAPSULE PO SCH (11:11)
--- NOTE | 2022-10-16 11:30 | NUR ---
Per Dialysis nurse Margarita , need to call her once patient is transfer to a room in order to complete peritoneal dialysis, phone number( [phone].
--- NOTE | 2022-10-16 11:37 | NUR ---
Admit bed requested Patient will be admitted to care of Dr CAMEJO.. Admitted to TELE unit. Diagnosis PNA,RENAL FAILURE Inpatient (Yes or No) YES Observation (Yes or No) NO Orientation concerns or request close to nursing station (Yes or No) YES Covid Status NEGATIVE On vent or bipap N/A Isolation requirements N/A Needs a sitter N/A From Home (Yes or if No enter name of facility) YES Requires Dialysis (Yes or No) YES Med Rec Completed (Yes of No)YES
[2022-10-16] MEDS ORDERED: AZITHROMYCIN 500 MG in NS 250 ML IV SCH (12:00)
--- NOTE | 2022-10-16 12:00 | NUR ---
Dialysis nurse at bedside
--- NOTE | 2022-10-16 12:30 | NUR ---
Patient will be admitted to care of Dr Colon. Admitted to Tele unit. Will go to room 121C. Belongings list completed. Complete and up to date summary report printed. SBAR report to be given at bedside with opportunity for questions.
--- NOTE | 2022-10-16 12:35 | NUR ---
New admit from ER Receive report from Chelsie NICK
--- NOTE | 2022-10-16 12:35 | NUR ---
Admit notes from ER Received patient awake in bed eyes close, confused oriented x1. Respiration even and unlabored, no signs of distress/pain. IV saline lock patent, abdominal peritoneal catheter intact, Skin dry and intact. [place] patent and at bed side to room. All safety precaution secure, continue to monitor.
--- NOTE | 2022-10-16 12:35 | NUR ---
CONSULTATION PAGED/CALLED Reason for Consultation: [] AMS Person Who was Notified: [] TEXTED CONSULT OT DR Juanita KELLEY Consulting Physician: [] DR Juanita KELLEY Hide Buffer Specialty: [] NEURO Ordering Physician: [] DR PERDOMO
--- NOTE | 2022-10-16 12:36 | NUR ---
ID MD DR FRANCOIS IS AWARE IF THE CONSULT, RE: PNA. HE CALLED AND WILL BE HERE AROUND 1400.
[2022-10-16 12:45] VITALS: BP_SYST 190
[2022-10-16 13:40] VITALS: BP_SYST 190
[2022-10-16] MEDS ORDERED: NIFEDIPINE 90 MG TABLET.SA (PROCARDIA XL 90 MG) PO ONE (13:45)
[2022-10-16] MEDS ORDERED: cloNIDine HCL 0.1 MG/24 HR PATCH.TDWK TD ONE (13:45)
[2022-10-16 19:00] VITALS: BP_SYST 173
[2022-10-16 20:00] VITALS: BP_SYST 173
[2022-10-16] MEDS: NIFEDIPINE 90 MG TABLET.SA (PROCARDIA XL 90 MG) PO SCH (22:39)
[2022-10-16] MEDS: SIMVASTATIN 20 MG TABLET PO SCH (22:39)
[2022-10-17] VITALS (11 sets, daily range): BP systolic 128–164
[2022-10-17] MEDS ORDERED: AZITHROMYCIN 500 MG in NS 250 ML IV SCH ×2 (06:00→09:00)
[2022-10-17] MEDS ORDERED: cefTRIAXone 1 GM IVPB PREMIX 50 ML IV SCH (06:00)
[2022-10-17] MEDS: NORMAL SALINE 5 ML DISP.SYRIN IVF SCH ×4 (06:40→14:00)
[2022-10-17 07:10] LABS: BASOPHILS % (AUTO) 0.4 % (0.0-2.0); EOSINOPHILS % (AUTO) 0.1 % (0.0-4.0); HEMATOCRIT 33.6 % (36-48); HEMOGLOBIN 10.5 g/dL (12.0-16.0); LYMPHOCYTES # (AUTO) 0.8 K/uL (1.0-5.5); LYMPHOCYTES % (AUTO) 7.4 % (20.5-51.5); MEAN CORPUSCULAR HEMOGLOBIN 30 pg (27-31); MEAN CORPUSCULAR HGB CONC 31 % (32-36); MEAN CORPUSCULAR VOLUME 95 fL (79.0-98.0); MONOCYTES % (AUTO) 10.2 % (1.7-9.3); NEUTROPHILS # (AUTO) 8.4 K/uL (1.8-7.7); NEUTROPHILS % (AUTO) 81.9 % (40.0-70.0); PLATELET COUNT (AUTO) 259 K/uL (130-430); RED BLOOD CELL COUNT(AUTO) 3.54 MIL/uL (4.2-6.2); RED CELL DISTRIBUTION WIDTH 15.8 % (9.0-15.0); WHITE BLOOD COUNT (AUTO) 10.2 K/uL (4.8-10.8)
[2022-10-17 07:40] LABS: ALBUMIN 2.9 g/dL (3.4-4.8); TOTAL BILIRUBIN 0.5 mg/dL (0.0-1.0)
--- NOTE | 2022-10-17 08:00 | NUR ---
Initial notes Received patient sleeping in bed, nonverbal/confused respiration even and unlabored, no signs of distress/SOB, Sinus Tachy on monitor. IV line patent. Safety precaution secured, bed in low position, call light w/in reached, continue to monitor.
[2022-10-17] MEDS: FOLIC ACID 1 MG TABLET PO SCH (08:34)
[2022-10-17] MEDS: hydrALAZINE HCL 25 MG TABLET PO SCH ×3 (08:35→21:00)
[2022-10-17] MEDS: calcitrioL 0.25 MCG CAPSULE PO SCH (08:36)
[2022-10-17] MEDS: NEPHROVITE, (FOLIC ACID/VITAMIN B COMP W-C 1 TAB) PO SCH (08:36)
[2022-10-17 08:41] LABS: CREATININE 14.87 mg/dL (0.55-1.30)
[2022-10-17] MEDS ORDERED: cloNIDine HCL 0.1 MG/24 HR PATCH.TDWK TD SCH (09:00)
--- NOTE | 2022-10-17 12:10 | NUR ---
New IV saline lock right forearm#22g
--- NOTE | 2022-10-17 16:35 | NUR ---
Dr. Reed ordered patient to transfer to ICU higher level care, left subdural hematoma
--- NOTE | 2022-10-17 17:15 | NUR ---
Received pt from [facility] to ICU bed 4. Pt lethargic and doesn't always follow instructions. Not helpful in removing clothes. Pt doesn't answer questions of whether she has a headache. She does have a light hand grasp to both hands. HOB up. ST on monitor rate 113 and BP 122/74 RR 17. Small gauge IV to right forearm. Pt has peritoneal dialysis catheter to abd. No skin breakdown. in to see pt. Plan of care discussed.
--- NOTE | 2022-10-17 17:25 | NUR ---
Patient transfer to ICU, report given to Anni NICK
--- NOTE | 2022-10-17 17:44 | NUR ---
Called Dr. Donato directly regarding patient consult.
--- NOTE | 2022-10-17 18:15 | NUR ---
Dr. Donato in to see pt and speaks to at bedside. Dr. Donato speaks with Dr. Reed on the phone. Pt needs to be transfered to higher level of care for neurosurgical consult. Dr. Reed called and orders left for discharge to any hospital for higher level of care.
[2022-10-17] MEDS ORDERED: levETIRAcetam 500 MG in NS 100 ML IV SCH (18:30)
[2022-10-17] MEDS ORDERED: LABETALOL HCL 20 MG/4 ML CARTRIDGE IVP PRN (18:30)
--- NOTE | 2022-10-17 18:43 | NUR ---
Spoke with [facility] transfer center ([facility]) at [phone] direct number. Info faxed over to [phone] will evaluate CT report and call us back.
--- NOTE | 2022-10-17 20:10 | NUR ---
Dr. Donato came back to see the patient again. Pt is more lethargic and having difficulty staying awake. Pt is able to open eyes briefly to loud voice. Remains weak on right side and actively moving left side. SANTIAGO 3 mm. at bedside. Keppra infusing. No seizure activity.
--- NOTE | 2022-10-17 20:20 | NUR ---
Dr. Donato speaks to neurologist at [facility] transfer center. They will accept pt without EEG. Waiting to hear back from [facility] regarding bed availability.
--- NOTE | 2022-10-17 20:30 | NUR ---
[facility] placed on will call- [facility].
--- NOTE | 2022-10-17 20:40 | NUR ---
[facility] called for picker. They are requesting possible authorization. face sheet faxed to [phone] (Sherri)
--- NOTE | 2022-10-17 20:42 | NUR ---
Spoke with Renea at [facility] and bed given. ICU 1 room 273. 911 Operator - Dr. Jackson Neurosurgeon - Dr. Santoro Neurology - Dr. Chenug
--- NOTE | 2022-10-17 20:55 | NUR ---
[facility] Room changed to ICU 3 Room 261
[2022-10-17] MEDS: NIFEDIPINE 90 MG TABLET.SA (PROCARDIA XL 90 MG) PO SCH (21:00)
[2022-10-17] MEDS: SIMVASTATIN 20 MG TABLET PO SCH (21:00)
--- NOTE | 2022-10-17 21:00 | NUR ---
Called HCP after hours [phone] to [facility] authorization. Sat on hold for a long time and got disconnected. Called back and spoke with Kristen who told me they are not contracted with [facility] and that the patient is contracted with [facility]. Clinical info requested for review.
--- NOTE | 2022-10-17 21:28 | NUR ---
Spoke with Renea at [facility] and she said they are contracted with pts insurance HCP/[facility] and have already run the insurance and didnt think to ask for authorization due to emergency nature. She said the neurosurgeon is waiting to take the patient to surgery. I told Renea I would call HCP back to inquire.
--- NOTE | 2022-10-17 21:35 | NUR ---
Spoke with Kristen with HCP and she changed her story and said that they are contracted with [facility] but only with authorization for [place] patients to go to [facility]. She indicated she received clinical info faxed over and would review it and get back to us.
--- NOTE | 2022-10-17 22:48 | NUR ---
Called HCP CM to inquire about progress in authorization for transfer. Spoke with Kristen. She said there is no update on transfer authorization. She emailed her team as well as our hospital coordinator regarding the transfer and said that probably tomorrow they can continue to work on authorization. SHe also said if we really felt that the patient needed transfering, we could transfer the patient without authorization.. I called supervisor cook house Deep for assistance. Deep said to transfer the pt to [facility] without authorization and he spoke to the pts at the bedside to inform him that we were going to proceed with the transfer.
--- NOTE | 2022-10-17 22:58 | NUR ---
[facility] called for transport.
[2022-10-17] MEDS: hydrALAZINE HCL 20 MG/ML VIAL IVP PRN (23:49)
[2022-10-18] MEDS: NORMAL SALINE 5 ML DISP.SYRIN IVF SCH ×2 (00:47)
--- NOTE | 2022-10-18 00:50 | NUR ---
Called [facility] spoke with Sanjana and gave report. [phone].
[2022-10-18 01:00] VITALS: BP_SYST 162
--- NOTE | 2022-10-18 01:03 | NUR ---
Report given to oncoming RN to assume care of the patient.
[2022-10-18 02:00] VITALS: BP_SYST 135
[2022-10-18] MEDS: hydrALAZINE HCL 20 MG/ML VIAL IVP PRN (02:41)
[2022-10-18 03:00] VITALS: BP_SYST 141
--- NOTE | 2022-10-18 03:30 | NUR ---
[facility] here for transport to [facility]. Report given. Patient stable at time of transfer.
--- NOTE | 2022-10-18 03:52 | NUR ---
Called [facility] spoke with Sanjana and gave report. [phone]. Patients current status/ VSS given and last given medications.
--- NOTE | 2022-10-18 03:58 | NUR ---
, Giovanni, aware of patients transfer to [facility].
[2022-10-18] MEDS ORDERED: CARVEDILOL 12.5 MG TABLET (COREG) PO SCH (09:00)
[2022-10-19 21:06] LABS: LEGIONELLA PNEUMOPHILIA AB <0.91 OD ratio (0.00-0.90); MYCOPLASMA PNEUMONIAE IgG <100 U/mL (0-99)
[2022-10-20 22:06] LABS: MYCOPLASMA PNEUMONIAE IgM <770 U/mL (0-769)
== END 2022-10-18 03:30 | disposition short-term general hospital (02) | DRG 64 ==
LOC: SED 00:24 → STU 03:26 → SIC 10-17 17:04
PROVIDERS: ADMIT Preventive Medicine Preventive Medicine/Occupational Environmental Medicine; ATTEND Preventive Medicine Preventive Medicine/Occupational Environmental Medicine
PROC: 3E1M39Z Irrigation of Peritoneal Cavity using Dialysate, Percutaneous Approach (ICD-10-PCS; principal; 2022-10-16)
PROC: 3E1M39Z Irrigation of Peritoneal Cavity using Dialysate, Percutaneous Approach (ICD-10-PCS; 2022-10-17)
PROC: 3E1M39Z Irrigation of Peritoneal Cavity using Dialysate, Percutaneous Approach (ICD-10-PCS; 2022-10-18)
DX: I62.01 Nontraumatic acute subdural hemorrhage (principal); E43 Unspecified severe protein-calorie malnutrition; J18.9 Pneumonia, unspecified organism; N18.6 End stage renal disease; Z68.1 Body mass index [BMI] 19.9 or less, adult; G93.49 Other encephalopathy; I12.0 Hypertensive chronic kidney disease with stage 5 chronic kidney disease or end stage renal disease; Z20.822 Contact with and (suspected) exposure to COVID-19; D63.1 Anemia in chronic kidney disease; E78.00 Pure hypercholesterolemia, unspecified; E83.39 Other disorders of phosphorus metabolism; E83.41 Hypermagnesemia; E78.5 Hyperlipidemia, unspecified; E88.09 Other disorders of plasma-protein metabolism, not elsewhere classified; Z90.13 Acquired absence of bilateral breasts and nipples; Z85.3 Personal history of malignant neoplasm of breast; Z88.8 Allergy status to other drugs, medicaments and biological substances; Z79.899 Other long term (current) drug therapy; Z99.2 Dependence on renal dialysis
CPT/HCPCS: 36415; 70450-TC; 71045; 76376; 80048; 80053; 82140; 82607; 83605; 83735; 84100; 84443; 84484; 85025; 86592; 86713; 86738; 87040; 87081; 90935; 96365; 96367; 99285; G0378; J0360; J0456; J0696; J1953; J7050